=== PATIENT | female | born 1990 | race Caucasian/White ===

== ENCOUNTER → 2021-12-07 | Outpatient (CLI) | payer OTHER ==
--- NOTE | 2021-12-07 16:06 | KCIC ---
XR RIBS MIN 3 VIEWS LT W/PA CHEST History: Left rib pain. Pain under left breast. Comparison: None. Technique: PA chest with 3 views the left ribs. Findings: The lungs are adequately and symmectrically inflated. No airspace consolidation, pleural effusion or pneumothorax. The cardiomediastinal silhoutte and pulmonary vasculature are within normal limits. Sof t tissues and osseous structures are unremarkable. No rib fracture or lesion is identified. Impression: 1. No acute cardiopulmonary process. No rib fracture or sequela identified. Electronically signed by: Meet Parmar MD (12/07/2021 4:04 PM) [id number]
== END ==
LOC: KCIC 14:19
PROVIDERS: ATTEND Nurse Practitioner Family
DX: R07.81 Pleurodynia (principal)
CPT/HCPCS: 71101